=== PATIENT | female | born 1955 | race Caucasian/White ===

== ENCOUNTER 2021-11-15 10:27 | Emergency (ER) | payer MEDICARE ==
[~2021-11-15] VITALS: Ht 162.6 cm; Wt 122.7 kg
[~2021-11-15 10:27] MED LIST: ASPI325T8 PO; CETI10CA PO; DULO60CA7 PO; LISI-130 PO; LISI1TAB39 PO; METO-247 PO; METO100T5 PO; METO50TA6 PO; NIAC1000 PO; OMEG1CAP6 PO; PRAM0.255 PO; PREG100C PO
--- NOTE | 2021-11-15 12:05 | PHYS DOC ---
Past Medical History Past Medical History: Cancer, Fibromyalgia, Hypertension Past Surgical History: Cervical Fusion, Cholecystectomy, Knee Replacement Additional Past Surgical Histo: right mastectomy Alcohol Use: None Drug Use: None General Adult HPI: HPI: Patient is a 66-year-old female who presents today with issues with her PICC line in her left upper arm. [facility] today and was having her PICC line removed by the nursing staff, they state that when they were trying to pull it they felt resistance and the patient was having increased pain while they were pulling the line, they did not pull the line they secure the line, and sent her to the emergency department for further evaluation. Patient states she was there because she had an infection with a total knee replacement, is she receiving intravenous antibiotics and she was being discharged today. Patient denies chest pain, shortness of breath, or fever or chills. Patient states the PICC line was placed at [facility]. Review of Systems: Review of Systems: Constitutional: Denies fever or chills. [] Eyes: Denies change in visual acuity. [] HENT: Denies nasal congestion or sore throat. [] Respiratory: Denies cough or shortness of breath. [] Cardiovascular: Denies chest pain or edema. [] GI: Denies abdominal pain, nausea, vomiting, bloody stools or diarrhea. [] : Denies dysuria. [] Musculoskeletal: Left upper arm pain denies back pain or joint pain. [] Integument: Denies rash. [] Neurologic: Denies headache, focal weakness or sensory changes. [] Endocrine: Denies polyuria or polydipsia. [] Lymphatic: Denies swollen glands. [] Psychiatric: Denies depression or anxiety. [] Heart Score: C/O Chest Pain: No Risk Factors: Risk Factors: DM, Current or recent (<one month) smoker, HTN, HLP, family history of CAD, obesity. Risk Scores: Score 0 - 3: 2.5% MACE over next 6 weeks - Discharge Home Score 4 - 6: 20.3% MACE over next 6 weeks - Admit for Clinical Observation Score 7 - 10: 72.7% MACE over next 6 weeks - Early Invasive Strategies Allergies: Allergies: Allergies Coded Allergies Type Severity Reaction Last Updated Verified Penicillins Allergy Intermediate 01/10/14 No Physical Exam: PE: Constitutional: Well developed, well nourished, no acute distress, non-toxic appearance. [] HENT: Normocephalic, atraumatic, bilateral external ears normal, oropharynx moist, no oral exudates, nose normal. [] Eyes: PERRLA, EOMI, conjunctiva normal, no discharge. [] Neck: Normal range of motion, no tenderness, supple, no stridor. [] Cardiovascular:Heart rate regular rhythm, no murmur [] Lungs & Thorax: Bilateral breath sounds clear to auscultation [] Abdomen: Bowel sounds normal, soft, no tenderness, no masses, no pulsatile masses. [] Skin: Warm, dry, no erythema, no rash. [] Back: No tenderness, no CVA tenderness. [] Extremities: Left upper arm tenderness located at the insertion site of the PICC line, no redness, or erythema noted or drainage. Radial pulse is 2+, there is bruising at the insertion site. Neurologic: Alert and oriented X 3, normal motor function, normal sensory function, no focal deficits noted. [] Psychologic: Affect normal, judgement normal, mood normal. [] Current Patient Data: Vital Signs: Vital Signs Date Time Temp Pulse Resp B/P (MAP) Pulse Ox O2 Delivery O2 Flow Rate FiO2 11/15/21 11:35 98.8 88 17 177/78 (111) 96 Room Air 98.8 EKG: EKG: [] Radiology/Procedures: Radiology/Procedures: REASON: lt arm pain/EVALUATION OF UPPER ARM PICC LINE PROCEDURE: VENOUS UPPER EXTREMITY LEFT US DPLX VENOUS EXTREMITY UPPER LT History: Reason: lt arm pain/EVALUATION OF UPPER ARM PICC LINE / Spl. Instructions: / History: Comparison: None. Procedure: Color flow Doppler, Doppler spectral analysis, and 2D images are obt ained with and without compression in the jugular vein, subclavian vein, axillary vein, brachial vein, radial vein, ulnar vein, and basilic and cephalic veins. Findings: Superficial vein thrombosis within the basilic vein surrounding the PICC. Patent left internal jugular, subclavian, axillary, brachial, radial and ulnar veins. IMPRESSION: 1. Superficial vein thrombosis within the left basilic vein in the region of the PICC. 2. No evidence of deep vein thrombosis. Electronically signed by: Abram Dey DO (11/15/2021 1:02 PM) [facility] [] Course & Med Decision Making: Course & Med Decision Making Pertinent Labs and Imaging studies reviewed. (See chart for details) 1350 spoke to interventional radiology physician and conferred with him regarding this patient's case and the position of the PICC line, he recommended that the PICC line be removed and the patient be observed for about an hour afterwards for any signs and symptoms of pulmonary emboli. He we will send staff from the interventional radiology department to pull the line. 1400 interventional radiology staff at the bedside and they remove the PICC line tip was intact. Patient was informed of the plan of care, and she is agreeable. She is asking for assistance to go to the bathroom and to have lunch ordered. 1530 patient was discharged from the emergency department with no complaints of shortness of air vital signs were stable. Patient voiced no other complaints and is agreeable with following up with her primary care physician for further management on outpatient basis. Patient is encouraged to return to the emerg ency department should she have any increased pain or redness or swelling in her left arm, she develops fever or increased shortness of breath. Dragon Disclaimer: Dragon Disclaimer: This electronic medical record was generated, in whole or in part, using a voice recognition dictation system. Departure Departure Impression: Primary Impression: PIC line (peripherally inserted central catheter) removal Disposition: 01 HOME / SELF CARE / HOMELESS Condition: STABLE Referrals: NON,STAFF (PCP) Patient Instructions: PICC, Removal and Care After Additional Instructions: Follow-up with your primary care provider for any concerns you may have Return to the emergency department for increased pain in the arm, shortness of breath, redness or swelling in the arm or development of a fever HUSSAIN PEREZ APRN Nov 15, 2021 12:05
--- NOTE | 2021-11-15 13:04 | RAD ---
US DPLX VENOUS EXTREMITY UPPER LT History: Reason: lt arm pain/EVALUATION OF UPPER ARM PICC LINE / Spl. Instructions: / History: Comparison: None. Procedure: Color flow Doppler, Doppler spectral analysis, and 2D images are obtained with and without compression in the jugular vein, subclavian vein, axillary vein, brachial vein, radial vein, ulnar v ein, and basilic and cephalic veins. Findings: Superficial vein thrombosis within the basilic vein surrounding the PICC. Patent left internal jugula r, subclavian, axillary, brachial, radial and ulnar veins. IMPRESSION: 1. Superficial vein thrombosis within the left basilic vein in the region of the PICC. 2. No evidence of deep vein thrombosis. Electronically signed by: Abram Dey DO (11/15/2021 1:02 PM) [facility]
[2021-11-15 14:03] VITALS: BP 174/75
== END 2021-11-15 15:23 | disposition home or self-care (01) ==
LOC: ER 10:27
DX: Z45.2 Encounter for adjustment and management of vascular access device (principal); I10 Essential (primary) hypertension; Z88.0 Allergy status to penicillin; M79.602 Pain in left arm
CPT/HCPCS: 93971; 99284-25